=== PATIENT | male | born 1975 | race Caucasian/White ===

== ENCOUNTER → 2020-07-23 | Outpatient (CLI) | payer OTHER ==
[2020-07-23 08:24] VITALS: BP 130/80; PULSE 82; RESP 18; TEMP 98.2
--- NOTE | 2020-07-23 08:54 | P.PAINCN ---
History of Present Illness - Reason for Consult Consult date: 07/23/20 - History of Present Illness This is an initial consultation visit for this 45 years old male, the chronic history of severe neck pain with radiation to right upper extremity associated with some numbness and tingling sensation, he had MRI of the cervical spine done previously and it showed multilevel cervical herniated disc disease, patient was diagnosed with cervical radiculopathy , and he was treated previously with Dr. Bonner , he had cervical epidural steroid injection with good results , the thoracic epidural steroid injection done in August 2019 , and he did fairly well until recently started having the same symptoms , he is complaining of severe neck pain with radiation to the right upper extremity , he denies any motor or sensory deficit he denies any fever or night sweats , and he denies any change in bowel movement or urination , also patient reported that over the last 2 weeks he started complaining of severe low back pain , is not radiated to the lower extremity , and he denies any numbness or tingling sensation in the lower extremity , the pain is constant severe interferes with the quality of life is not relieved by pain medication , he had lumbar laminectomy surgery done 10 years ago he did fairly well until recently , patient reported that he never had any diagnostics done the after the surgery and is currently using Tylenol and Motrin for pain he denies any side effect of the medication Past Medical History Additional Past Medical History / Comment(s): back and neck pain, 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 History of Any Multi-Drug Resistant Organisms: None Reported Past Surgical History: Back Surgery Additional Past Surgical History / Comment(s): epidurals for pain in past Past Anesthesia/Blood Transfusion Reactions: No Reported Reaction Past Psychological History: No Psychological Hx Reported Smoking Status: Never smoker Past Alcohol Use History: Occasional Past Drug Use History: None Reported Medications and Allergies Home Medications Medication Instructions Recorded Confirmed Type Acetaminophen Tab [Tylenol] 650 mg PO Q6H PRN 07/19/20 07/23/20 History Ibuprofen [Advil] 200 mg PO Q8HR PRN 07/19/20 07/23/20 History Allergies Allergy/AdvReac Type Severity Reaction Status Date / Time No Known Allergies Allergy Verified 07/19/20 10:50 Physical Exam Vitals: Vital Signs Temp Pulse Resp BP Pulse Ox 07/23/20 08:18 98.2 F 82 18 130/80 96 Physical Examinations : -Constitutiona : Cooperative , not in acute distress . -HEENT : nech : supple , no Lymphadenopathy , normal thyroid size . : eyes : no ptosis , no icterus, no photophobia . - neurologic : Cranial nerve II to XII intact , no focal neurological deffecit . -psychatric : alert , oriented X 3 , appropriate affect , intact judgment and insight . -Lymphatic : no Lymphadenopathy . - musculoskeltal : Cervical Spine motor stregnth in the deltoid and biceps, normal right side , normal Left side motor stregnth biceps and the wrist extensors normal right side ,normal left side . motor stregnth in the triceps muscle . normal Right side , normal Left side deep tendon reflexes normal at the biceps , normal at Brachioradialis , normal at triceps. cervical facet loading test= Negative b ilaterally Spurling test= positive . Neck distraction test= positive . Sarah sign= positive . Lumber spine moter stegnth lower extremities ,thigh and legs 5/5 Right side , 5/5 Left side deep tendon reflexes : normal Knee Jerk , normal ankle Jerk lumber facet Loading Test =positive Right , positive Left Range of motion of the lumbar spine Flexion 60 degrees, extension 30 degrees strait leg raising test = negative Fabere test= Negative Results Comments: MRI of the cervical spine= C5 6 and C6 7 disc herniation Assessment and Plan Plan: Assessment and plan=1-cervical radiculopathy. 2-Cervical disc herniation. 3-post laminectomy pain syndrome lumbar area . will order MRI of the lumbar spine with and without contrast to evaluate the etiology. Patient will benefit from cervical epidural steroid injections under fluoroscopy guidance at C7-T1 ( Right paramedian approach ) Time with Patient: Greater than 30 PQRS Measure Charge Sheet Measure #130: Documentation of Current Meds in Medical Chart: Patient's medications documented in chart Measure #226: Tobacco Use: Screen & Cessation Intervention: Pt not a tobacco user Measure #111: Pneumonia Vaccination: Pneumococcal vaccine NOT administered or previously given Measure #47: Advance Care Plan: Advance care planning discussed & documented, pt chose/unable to give Measure #412: Opioid Treatment Agreement: No documentation of signed opioid treatment agreement Measure #408: Opioid Therapy Follow-up Evaluation: Patient had NO f/u eval minimum every 3 months during opioid therapy Measure #317: Preventitive Care & Scrn High Bld Press & F/U: Normal blood pressure, f/u not required Measure #128: Body Mass Index (BMI) Screening & Follow-up: BMI documented ABOVE normal parameters - f/u documented Measure #131: Pain Assessment & Follow-up: Pain positive & plan documented, F ollow-up scheduled Measure #431: Unhealthy Alcohol Use Preventative Care & Scrn: Patient not identified as an unhealthy alcohol user PQRS Narrative: Blood Pressure 130/80 Pain Intensity [Neck] 5 Pain Intensity [Back] 7 Scale Used Numeric (1 - 10) Hx Alcohol Use (MH) Yes: Social Home Medications: Ambulatory Orders Acetaminophen Tab [Tylenol] 650 mg PO Q6H PRN 07/19/20 Ibuprofen [Advil] 200 mg PO Q8HR PRN 07/19/20
== END | disposition home or self-care (01) ==
LOC: PNWHC3 08:07
PROVIDERS: ATTEND Specialist
DX: M50.10 Cervical disc disorder with radiculopathy, unspecified cervical region (principal); M96.1 Postlaminectomy syndrome, not elsewhere classified; Z79.891 Long term (current) use of opiate analgesic; Z79.899 Other long term (current) drug therapy
CPT/HCPCS: 99211

== ENCOUNTER → 2020-08-13 | Outpatient (CLI) | payer OTHER ==
--- NOTE | 2020-08-13 21:19 | MR ---
EXAMINATION TYPE: MR lumbar spine wo/w con DATE OF EXAM: 08/13/2020 COMPARISON: None HISTORY: Postlaminectomy pain CONTRAST: 12 mL intravenous Gadavist. TECHNIQUE: Multiplanar, multisequence images of the lumbar spine were acquired. FINDINGS: L5-S1: No significant disc bulge or disc herniation. No spinal canal stenosis. No foraminal stenosi s. Postsurgical changes are present. A small laminectomy on the left. Following contrast menstruatio n no suspicious enhancement is evident. There is some granulation tissue extending to the left S1 exi ting nerve root. Correlate with the radicular symptoms.. In the sagittal plane there appears to be se refugio left foraminal stenosis likely due to facet hypertrophy as well as some disc bulging. L4-L5: No focal disc herniation or significant disc bulge is evident. No spinal canal stenosis or yuri ral foraminal stenosis is present. Some facet degenerative changes present L3-L4: No significant disc bulge or disc herniation. No spinal canal stenosis. No foraminal stenosi s. . L2-L3: No significant disc bulge or disc herniation. No spinal canal stenosis. No foraminal stenosi s. . L1-L2: No significant disc bulge or disc herniation. No spinal canal stenosis. No foraminal stenosi s. . T12-L1: No significant disc bulge or disc herniation. No spinal canal stenosis. No foraminal stenos is. No abnormal enhancement. IMPRESSION: 1. Postlaminectomy L5. Granulation tissue does extend to the left exiting S1 nerve root. Correlate wi th the patient's clinical symptoms. 2. Right foraminal stenosis at L5-S1 is also present 3. No spinal canal stenosis or significant foraminal narrowing is evident.
== END | disposition home or self-care (01) ==
LOC: RADMRIMAIN 17:06
PROVIDERS: ATTEND Specialist
DX: M96.1 Postlaminectomy syndrome, not elsewhere classified (principal); M48.07 Spinal stenosis, lumbosacral region
CPT/HCPCS: 72158; A9585

== ENCOUNTER → 2020-08-14 | Day surgery (SDC) | payer OTHER ==
[2020-08-10 15:45] VITALS: BMI 36.9
[~2020-08-14] MED LIST: DEXAMETHASONE SOD PHOSPHATE 10 MG/ML 1 ML VIAL ONE; IOPAMIDOL M200 10 ML VIAL ONE; IV FLUID CONTINUATION 600 ML IV ONE; LACTATED RINGERS 1,000 ML IV SCH; LIDOCAINE 1% (10MG/ML) FOR IV START INTRADERMA ONE; MIDAZOLAM 2 MG/2 ML VIAL ONE; fentaNYL (PF) 50 MCG/ML 2 ML AMP ONE
[2020-08-14 13:19] VITALS: RESP 16; TEMP 97.1
--- NOTE | 2020-08-14 13:54 | P.PCN ---
Date of Procedure: 08/14/20 Surgeon: Ned Cartagena Pathology: none sent Condition: stable Disposition: PACU Description of Procedure: PROCEDURE 1. Cervical epidural steroid injection under fluoroscopic guidance, C7-T1 right paramedian approach. 2. Cervical epidurogram. : PREOPERATIVE DIAGNOSIS: Cervical radiculopathy, cervical spondylosis without myelopathy POSTOPERATIVE DIAGNOSIS: : Same as above ANESTHESIA: Local anesthesia with 1% lidocaine and IV moderate conscious sedation with Versed and Fentanyl . EBL 0 PROCEDURE INDICATION: The patient with neck pain and radiculopathy unresponsive to conservative treatment consents for procedure. PROCEDURE DESCRIPTION / TECHNIQUE: The patient was seen and identified in the preoperative area. Risks, benefits, complications, including but not limited to infections ,bleeding , allergic reactions to the medications ,and not complete pain relief, and alternatives were discussed with the patient, the patient agreed to proceed with the procedure and signed the consent. Patient was taken to the OR and time out was completed. The patient was placed in the prone position on the procedure table. A pillow was placed under the patients chest to increase the flexion of the cervical spine . The cervical area was prepped and draped in the usual sterile fashion. Vital signs were closely monitored during the procedure. Conscious sedation was used during the procedure to decrease patients anxiety. Using anterior-posterior fluoroscopy, the C7-T1 interlaminar space was identified and the skin over this site was marked and then infiltrated with 1% lidocaine subcutaneously. Subsequently, a 20-gauge 3-1/2-inch Tuohy epidural needle was inserted and advanced toward the epidural space by means of loss of resistance to air technique and guided by AP and lateral fluoroscopy. The needle tip contacted the lamina of T1 vertebra first, then it was walked off bone and into the epidural space using the loss of to air and fluoroscopic guidance to identify the epidural space. The correct needle position in the epidural space was verified with the injection of 1 mL of the water soluble contrast dye Isovue and observing an excellent epidurogram with the epidural spread of the dye, after negative aspiration for blood and CSF and in the absence of paresthesias. Again after negative aspiration, 20 mg of Decadron was injected and a washout of epidurogram was seen. Needle was withdrawn intact, skin was cleansed, and bandages were applied. A copy of the needle placement picture was saved to the fluoroscopy machine.
--- NOTE | 2020-08-14 14:06 | FL ---
EXAMINATION TYPE: FL guided pain mgmt statistic DATE OF EXAM: 08/14/2020 HISTORY: Fluoroscopy time 37 seconds of fluoroscopy provided. IMPRESSION: 1. Fluoroscopy time.
[2020-08-14 14:17] VITALS: BP 133/71; PULSE 79
== END ==
LOC: ORPAIN 12:43
PROVIDERS: ATTEND Anesthesiology
DX: M47.22 Other spondylosis with radiculopathy, cervical region (principal); E66.9 Obesity, unspecified; Z68.41 Body mass index [BMI] 40.0-44.9, adult
CPT/HCPCS: 62321; J2250; J1100; J3010; Q9966; 99152; 99153

== ENCOUNTER → 2020-09-17 | Outpatient (CLI) | payer OTHER ==
[2020-09-17 09:10] VITALS: BP 118/58; PULSE 99; RESP 16; TEMP 97.9
--- NOTE | 2020-09-17 19:54 | P.PN ---
Progress Note - Text Progress Note Date: 09/17/20 Progress Note - Text 45-year-old male presents for follow-up visit after cervical epidural steroid injection. He's having excellent relief from the injection. He was previously a patient of Dr. Saroj Bonner had been receiving cervical epidural injections with good results. He also received a thoracic epidural steroid injection and did fairly well until recently. On his initial consult he presented with severe neck pain radiating into his right upper extremity graded denied any motor or sensory deficits. He also complaining of severe low back pain that is not radiating into his lower extremities. Denied any numbness or tingling or sensory deficits in the lower extremity's. The pain is constant, and severely interferes with his quality of life and performing activities of daily living. He had a laminectomy done 10 years ago and has done fairly well since then. He does have some intermittent low back pain mostly on the left side, does not radiate to his extremities. He currently wants to continue with conservative therapies to the low back issue. Current medication uses rotation between Tylenol and Motrin for the pain, which is used infrequently , and denies any side effects of the medication. In addition to above, 13-point review of systems is also negative for chest pain, shortness of breath, changes in vision, changes in hearing, new onset weakness, abdominal pain, diarrhea, extreme fatigue, malaise, fever, skin changes, homicidal or suicidal ideation, or bowel or bladder incontinence. Physical exam: Gen: A&O 3, NAD, normal BMI HEENT: Atraumatic, normocephalic, pupils equal and reactive to light Integ: No skin abnormalities or lesions noted CVS: Regular rate and rhythm, adequate peripheral pulses Pulmn: Nonlabored, no wheezing Cervical spine: Range of motion: Pain with rotation of the right Spurling's test: Positive on the right with reproducible symptoms. Facet loading: Positive bilateral Reflexes: 2+ biceps and triceps. Lumbar spine: Palpation: No tenderness to palpation Inspection: No deformities or scoliosis Range of motion: Normal flexion, pain with extension -10 on the left Facet loading: + Left BE test: Negative bilateral Reflexes: 2/2 bilateral knee and ankle Neuromuscular: Sensation: Intact from L1-S1 Motor: 5/5 hip flexion, 5/5 knee extension, 5/5 (EHL), 5/5 Dorsiflexion, 5/5 Plantar Flexion bilateral Motor upper extremity: 5/5 bicep flexion, tricep extension, wrist flexion, wrist extension Gait: No gait abnormalities, no assist device utilized Imaging: Reviewed in EMR Assessment: 1. Cervical radiculopathy 2. Cervical spondylosis 3. Lumbar post laminectomy syndrome 4. Plan: 1. Explanation: Diagnoses, prognoses, and multiple treatment options including but not limited to physical therapy, interventional therapies, adjuvant medical therapies, narcotic medication therapies, and surgery were discussed with the patient and all questions were answered to the patient's satisfaction. 2. Opioid agreement: Not signed no narcotics prescribed 3. Counseling: The patient was counseled extensively on BODY MASS INDEX, EXERCISE. Specifically, the patient was instructed regarding the importance of obesity, and exercise in the context of both chronic pain and overall health. 4. Procedures: None at the moment 5. Consultations: None 6. Investigations: None 7. Medications: None 8. Disposition: Patient will follow up as needed PQRS measures: Separate sheet.
== END | disposition home or self-care (01) ==
LOC: PNWHC3 08:45
PROVIDERS: ATTEND Anesthesiology
DX: M96.1 Postlaminectomy syndrome, not elsewhere classified (principal); M47.22 Other spondylosis with radiculopathy, cervical region
CPT/HCPCS: 99211